=== PATIENT | female | born 1980 | race African-American/Black ===

== ENCOUNTER 2021-08-08 10:54 | Emergency (ER) | payer OTHER, SELFPAY ==
--- NOTE | ~2021-08-08 | XR_ITS ---
EXAMINATION: XR foot LT 2V DATE: 08/08/2021 11:44 INDICATION: Knot at the anterolateral side of the left foot TECHNIQUE: Dorsoplantar and lateral views of the left foot were obtained. COMPARISON: None. FINDINGS: Bone alignment is normal. No fracture. Mild osteoarthritis at the first metatarsophalangeal joint. 2. 7 mm very thin curvilinear wire-like metallic foreign body located in the subcutaneous tissues approx imately 2.5 mm deep to the skin surface positioned between the necks of the first and second metatars als. No other radiopaque foreign bodies. Soft tissues are otherwise unremarkable. IMPRESSION: 1. 2.7 mm thin wire-like metallic foreign body in the dorsal superficial subcutaneous tissues between the necks of the first and second metatarsals. Reviewed, dictated and finalized at location A. IMPRESSION: 1. 2.7 mm thin wire-like metallic foreign body in the dorsal superficial subcut aneous tissues between the necks of the first and second metatarsals.
[2021-08-08 11:15] VITALS: BP 141/84; PULSE 65; RESP 16; TEMP 36.6; O2SAT 99
--- NOTE | 2021-08-08 11:33 | ED.LOWEXIN ---
HPI - Extremity Injury (Lower) General Chief Complaint: Extremity Injury, Lower Stated Complaint: foot injury Time Seen by Provider: 08/08/21 11:29 History of Present Illness HPI Narrative: Patient is a healthy 41-year-old female here for evaluation of left foot pain. Patient states that she noted a painless bump on her foot 3 weeks ago. She has been walking on the left foot without trouble. States that she struck her foot on the dresser 3 days ago, and since then the lump has been painful. She took Tylenol yesterday with good relief of her symptoms. Denies numbness or tingling in her foot, weakness, break in skin integrity. Denies known foreign body. Related Data Allergies Allergy/AdvReac Type Severity Reaction Status Date / Time No Known Allergies Allergy Unverified 06/16/17 11:32 Review of Systems Review of Systems: APPEARANCE: No acute distress, nontoxic, resting in bed EYES: EOMI HEENT: Normocephalic, atraumatic, OMM RESPIRATORY: No respiratory distress Clear to auscultation bilaterally with no rhonchi wheezing or rales. CARDIOVASCULAR: 2+ DP and PT pulses bilaterally. Regular rate and rhythm without murmurs rubs or gallops. ABDOMINAL: Soft, nontender, nondistended, no rebound or guarding MUSCULOSKELETAL: Patient has very mild swelling on her left anterior foot overlying her cuneiforms that is tender to palpation. No erythema or break in skin integrity. Moves all extremities. No clubbing, cyanosis or edema. NEURO: Sensation intact over entire foot. Full range of motion in bilateral feet. Awake and alert. Following commands, speech normal, no focal deficits SKIN: Warm, dry. No rashes lesions or abrasions PSYCHIATRIC: Normal affect/mood Course Vital Signs Vital signs: Vital Signs Temperature 97.8 F 08/08/21 11:15 Pulse Rate 65 08/08/21 11:15 Respiratory Rate 16 08/08/21 11:15 Blood Pressure 141/84 H 08/08/21 11:15 Pulse Oximetry 99 08/08/21 11:15 Oxygen Delivery Room Air 08/08/21 11:15 Temperature 97.8 F 08/08/21 12:09 Pulse Rate 72 08/08/21 12:38 Respiratory Rate 18 08/08/21 12:38 Blood Pressure 146/99 H 08/08/21 12:38 Pulse Oximetry 99 08/08/21 12:38 Oxygen Delivery Room Air 08/08/21 11:15 MDM - Extremity Injury (Lower) MDM Narrative Medical decision making narrative: 41-year-old female here for evaluation of pain and swelling to her right anterior foot. Good distal pulses, sensation intact, able to move foot and bear weight without trouble. X-ray does reveal evidence of a small metallic foreign body just under the skin. Patient does not recall a time where this foreign body could have been entered into her skin. She has no break in her skin integrity by time of my exam. The foreign body is over the location of her pain, but the object is small, and she has no signs of cellulitis or deep tissue infection, feel risks of removal in ED outweigh benefits. Will provide patient with podiatry follow-up. Discussed return precautions, she voiced understanding. Discharge Plan Discharge Clinical Impression: Foreign body (FB) in soft tissue Patient Disposition: Home, Self-Care Condition: Stable Instructions: Antibiotic Form Additional Instructions: You are found to have a small metallic foreign body in your foot where you are having pain. Please follow-up with podiatry if the pain continues. Return to the emergency department if you develop severe pain, you cannot walk, your foot becomes swollen or red, you develop fevers. Follow-up/Referrals: Otto Newsome DPM [Physician] - 1 Week PHYSICIAN NOT ON STAFF,NONSTAFF [Primary Care Provider] -
[2021-08-08] MEDS: IBUPROFEN 600 MG TABLET PO (11:39)
[2021-08-08 12:09] VITALS: TEMP 36.6
[2021-08-08 12:38] VITALS: BP 146/99; PULSE 72; RESP 18; O2SAT 99
== END 2021-08-08 12:39 | disposition home or self-care (01) ==
PROVIDERS: Emergency Provider Emergency Medicine
DX: M79.5 Residual foreign body in soft tissue (principal)
CPT/HCPCS: 73620; 99283; A9270

== ENCOUNTER 2024-08-05 09:11 | Emergency (ER) | payer OTHER, SELFPAY ==
--- NOTE | ~2024-08-05 | XR_ITS ---
Left wrist Technique: PA, oblique, lateral, and ulnar deviation views were obtained. Clinical History: Pain Findings: No acute fracture or dislocation is seen. Osseous alignment is anatomic. Joint spaces are p reserved. There are several scattered small to 4 bodies at the mid to distal forearm. There are proba ble surgical clips at the distal forearm/wrist.. Impression: No fracture or dislocation. Foreign bodies as above. Correlate with physical exam. These may be chronic in nature. Reviewed, dictated and finalized at location M. Impression: No fracture or dislocation. Foreign bodies as above. Correlate with physical exam. These may be chronic in nature.
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
--- NOTE | ~2024-08-05 | XR_ITS ---
Left Hand Technique: PA, oblique, and lateral views were obtained. Clinical History: Pain Findings: No acute fracture or dislocation is seen. Osseous alignment is anatomic. Joint spaces are p reserved. Soft tissues are unremarkable. Impression: Unremarkable left hand. Reviewed, dictated and finalized at location M. Impression: Unremarkable left hand.
--- NOTE | ~2024-08-05 | XR_ITS ---
Left Shoulder Technique: AP and axillary views were obtained. Clinical History: Pain Findings: No fracture or dislocation is seen. Osseous alignment is anatomic. The glenohumeral and acr omioclavicular joint spaces are preserved. Soft tissues are unremarkable. Impression: Unremarkable left shoulder radiographs. Reviewed, dictated and finalized at [facility]. Impression: Unremarkable left shoulder radiographs.
--- NOTE | ~2024-08-05 | CT_ITS ---
Noncontrast CT scan of the cervical spine Technique: Multiple contiguous axial [address] images of the cervical spine were obtained and rec onstructed in 2D sagittal and coronal planes on the acquisition scanner. Dose reduction technique was used on this scan by utilizing automated exposure control, adjustment of the mA and/or kV according to patient size. The dose-length product (DLP) was 407.65 mGy-cm. Clinical History: Pain Findings: No fractures or dislocations. There is mild reversal of the normal cervical lordosis. Osse ous structures otherwise unremarkable. The intervertebral disc spaces are preserved. No prevertebral soft tissue swelling. Impression: No fracture or subluxation of the cervical spine. Mild reversal of the normal cervical lordosis. Reviewed, dictated and finalized at location . Impression: No fracture or subluxation of the cervical spine. Mild reversal of the normal cervical lordosis.
[2024-08-05 09:17] VITALS: BP 146/90; PULSE 84; RESP 16; TEMP 36.4; O2SAT 100
--- NOTE | 2024-08-05 09:49 | PC.NURSE ---
Patient in imaging at this time
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
--- OUTSIDE RECORDS SUMMARY | 2024-08-05 09:52 | XMS_ITS | Referral Summary ---
Author Organization [facility] al Address [address] [place] [address] Care Team Providers Care Speech Language Pathologist Name Role Phone Yony Wilson MD Primary [...] (05/27/2018): Added automatically from request for surgery [id number] Immunizations Immunization Administration Dates Next Due Tdap 01/21/2018 Social History Tobacco Use Types Packs/Day Years [...] on file Legal Sex Female 9:04 AM CIGARETTE FILTER INSPECTOR Gender Identity Not on file Sexual Orientation Not on file Last Filed Vital Signs Vital Sign Reading Time Taken Comments Blood Pressure 126/77 05/03/2022 6:00 AM CIGARETTE FILTER INSPECTOR Pulse 68 05/03/2022 6:00 AM CIGARETTE FILTER INSPECTOR Temperature 36.7 C (98 F) 05/03/2022 2:12 AM CIGARETTE FILTER INSPECTOR Respiratory Rate 22 05/03/2022 6:00 AM CIGARETTE FILTER INSPECTOR Oxygen Saturation 95% 05/03/2022 6:00 AM CIGARETTE FILTER INSPECTOR Inhaled Oxygen Concentration - - Weight 127 kg (280 lb) 05/03/2022 2:12 AM CIGARETTE FILTER INSPECTOR Height 185.4 cm (6' 1) 05/03/2022 2:08 AM CIGARETTE FILTER INSPECTOR Body Mass Index 36.94 05/03/2022 2:08 AM CIGARETTE FILTER INSPECTOR Plan of Treatment Not on file Insurance [facility] MEDICAID [facility] MEDICAID [facility] PLAN OF RI [facility] Care Teams Speech Language Pathologist Relationship Specialty Start Date End Date Yony Wilson MD [address] [place] [address] PCP - General Gastroenterology 03/13/22
--- OUTSIDE RECORDS SUMMARY | 2024-08-05 09:52 | XMS_ITS | CONTINUITY OF CARE DOCUMENT ---
Author Name heath joe Address Unknown Organization [facility] Office Address [address] [place] [address] [address] [place] [address] Phone [phone] Care Team Providers Care Shop Clerk Name Role Phone Bailey YOST, Nico Unavailable [phone] Nico Avalos MD Unavailable INSURANCE PROVIDERS Payer name Policy type / Coverage type Silvestre red libertarian [place] MEDICAID (2) Medicaid [id number]
--- OUTSIDE RECORDS SUMMARY | 2024-08-05 09:52 | XMS_ITS | Data Portability ---
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 Blood Transfusion N MRSA N Emphysema N Depression N COPD N Blood Clots N Pneumonia N Premature N Peripheral Arterial Disease N Edema N TIA N Headaches/Migraines N Anxiety Disorder N Obesity N Polyps N Infertility N Acid Reflux (GERD) N Hematuria N Stroke N Neck Injury N Polio N Hospital Admission other than N Neurologic Disorder N Other Sleep Disorders N Rheumatoid Arthritis N Fibromyalgia N Abdominal Aortic Aneurysm Repair N Kidney Disease N Heart Conditions N Heart Disease/Heart Problems N Hospitalizations N Brain Tumors N Acne N Skin Problems N Eating Disorder N Meningitis N Constipation N Tuberculosis N Cerebral Palsy N Myocardial Infarction N Asthma N Substance Abuse N Peripheral Vascular Disease N Vertigo N Sleep Disorder N Cirrhosis N Pulmonary Embolism N Chicken Pox N Hematologic Disease N Flomax Use Past or Present N Anxiety/Depression N Thyroid Disease N Colon Cancer N Lung Disease N Glaucoma N Developmental or Behavioral Disorders N Bipolar N Pacemaker N Diverticulitis/Diverticulosis N Orthopedic Problems N Anesthesia Complications N Orthotics N Head Injury/Concussion N Congenital Anomalies N Vicente Bite N Chronic Kidney Disease N Endometriosis N Liver Disease N Schizophrenia N Dialysis N Speech Delay N Chronic Obstructive Pulmonary Disease N Parkinson's Disease N Thyroid Problems N GI Problems N Developmental Delay N Anemia N Multiple Sclerosis N Immune System Disorder N Colon Polyps N Heart Attack (ID) N Diabetes N Cardiomyopathy N Blood Transfusions N Heart Problems/Murmur N Eye Trauma N Congestive Heart Failure (CHF) N Valvular Heart Disease N Hyperlipidemia N Double Vision N Abuse/Domestic Violence N Hepatitis B N Lupus N Epilepsy/Seizures N Reflux/GERD N Aneurysm N Heart Disease N Bronchitis N Pre-Eclampsia N Hypertension N Heart Failure N Other N Gout N High Blood Pressure N Atrial Fibrillation N Kidney Stones N Head Trauma/Injury N Congenital Heart Disease N Spine Problems N Gastrointestinal Disease N Lung Mass N Sinusitis N Obstructive Sleep Apnea N Muscle, Joint, or Bone Problems N Autoimmune disease N Vision or Eye Problems N Arthritis N Blood Clot N Cancer N Seasonal allergies N Leg or Foot Ulcers N Raynaud's Disease N Aortic Aneurysm N Arrhythmia N Headaches N Heart Problems N Ambloypia N Ear or Hearing Problems N Hyperparathyroidism N Migraines N Artificial Joints N Kidney or Bladder Problems N NSAID Use N Encephalitis N PTSD N Ulcers N Prostate Hypertrophy N Bleeding Disorder N AIDS/HIV N Urinary Tract Infection N Back Problems N Allergies N Atrial Flutter N GERD/Reflux N Hepatitis N Autism Spectrum Disorder (ASD) N Breast Cancer N Hernia N Hypothyroidism N Breast Problem N Genitourinary Disease N Deep Vein Thrombosis N Varicose Veins N Cystic Fibrosis N Hearing Loss N Developmental Problems N Carotid Disease N Vitamin D Deficiency N ADHD N Bladder or Kidney Problems N High Cholesterol N [place] N Valvular Abnormalities N Psychiatric/Mental Health Condition N Organ Transplant N Foot Deformity N Allergies/Hayfever N Dyslipidemia N Hyponatremia N Diabetic Eye Disease N Osteoporosis/Osteopenia N Back Pain N Proteinuria N Mental Illness N Neurological Problems N Ovarian Cancer N Bedwetting N Seizures/Epilepsy N Kidney Failure N Ocular trauma N Diverticulitis N Dementia N Sleep Apnea N Mental Problems N Warfarin Management N Osteoporosis N Gynecological History Statement/Question Response Flow Moderate Date of LMP 12/11/2023 STIs/STDs N HPV Vaccine N Duration of Flow (days) 5 Age at Menarche 14 Current Control Method None Age at First Child 21 Frequency of Cycle (Q days) 30 Sexually Active? Y Menses Monthly Y Date of Last Pap Smear 07/16/2018 Sexual Problems? N LMP Approximate Desired Control Method None Obstetrics History GPAL:G 6 P 4 0 3 4 Type Value Multiple Births 1 Full Term 4 Induced 0 Spontaneous 3 Premature 0 Living 4 Ectopics 0 Total 6 Immunizations Vaccine Type Date Status Note Provider Nam e and Address Organization Details Recorded Time OPV 3 completed Not Available [facility] 07/29/2024 15:21:52 DTP 3 completed Not Available [facility] 07/29/2024 15:21:52 DTP 3 completed Not Available [facility] 07/29/2024 15:21:52 OPV 3 completed Not Available [facility] 07/29/2024 15:21:52 DTP 3 completed Not Available [facility] 07/29/2024 15:21:52 OPV 3 completed Not Available [facility] 07/29/2024 15:21:52 rubella 3 completed Not Available [facility] 07/29/2024 15:21:52 measles 4 completed Not Available [facility] 07/29/2024 15:21:52 DTP 5 completed Not Available [facility] 07/29/2024 15:21:52 OPV 5 completed Not Available [facility] 07/29/2024 15:21:52 DTP 8 completed Not Available [facility] 07/29/2024 15:21:52 OPV 8 completed Not Available [facility] 07/29/2024 15:21:52 MMR 3 completed Not Available [facility] 07/29/2024 15:21:52 Td (adult), 2 Lf tetanus toxoid, preservative free, adsorbed 0 completed Not Available [facility] 07/29/2024 15:21:52 Tdap 8 completed Not Available [facility] 07/29/2024 15:21:52 HPV9 0 completed Ashanti Simpson [place] null, [place] [facility] 05/07/2019 14:14:49 HPV9 0 completed Melissa Parker [place], [place] [facility] 07/30/2019 17:05:21 HPV9 0 completed Tisha Leyva [place], [place] [facility] 11/13/2019 11:47:51 Past Encounters Encounter ID Performer Location Encounter Start Date Encounter Closed Date Diagnosis/Indication Diagnosis SNOMED-CT Code Diagnosis ICD10 Code Diagnosis Note [id number] MD Genaro Mack (JITNEY DRIVER) [address] [place] [address] [phone] 0 08/02/2014 11:30:27 08/02/2014 13:40:10 Pain in pelvis [id number] MD Genaro Wright (JITNEY DRIVER) [address] [place] [address] 82371-606 0 07/01/2015 14:09:13 07/08/2015 17:01:10 Gynecologic examination 47487387 Z01.547 [id number] MD Genaro Franz (Adult Med) [address] [place] [address] 93244-576 0 06/25/2018 14:44:47 06/26/2018 10:22:26 Neuropathy 014616544 G62.9 Obesity 687316191 E66.9 [id number] MD Genaro Mcdaniel (JITNEY DRIVER) [address] [place] [address] [id number] 0 07/16/2018 14:23:53 07/18/2018 09:43:06 Exposure to sexually transmissible disorder 825894702 Z20.2 Obesity 253809332 E66.9 Gynecologi c examination 95044858 Z01.419 Neuropathy 516187318 G62 .9 [id number] MD Genaro Franz (Adult Med) [address] [place] [address] [id number] 0 08/13/2018 15:44:59 08/14/2018 09:50:48 Neuropathy 963584698 G62.9 Elevated blood-pressure reading without diagnosis of hypertension 584199480 R03.0 Start HCTZ Postoperative pain 84739 9007 G89.18 Medication monitoring 39 7848100 Z51.81 [id number] MD Genaro Franz (Adult Med) [address] [place] [address] [id number] 0 11/12/2018 11:58:13 11/13/2018 09:59:39 Postoperative pain 251966550 G89.18 Neuropathy 689049012 G62 .9 Obesity 543171931 E66.9 Medication monitoring 39 5740884 Z51.81 [id number] MD Genaro Mcdaniel (JITNEY DRIVER) [address] [place] [address] 76018-273 0 05/07/2019 12:09:31 05/07/2019 14:13:46 Family planning surveillance 826782344 Z30.09 Urinary incontinence 165 756032 R32 Urge and Stress incontinen ce. Instructed to continue Kegel exercises and to ensure she is consistent with them. Dysfunctio n of urinary bladder 83105374 R39.89 Active or passive immunization 580119884 Z23 [id number] MD Genaro Franz (Adult Med) [address] [place] [address] [id number] 0 05/13/2019 12:00:22 05/27/2019 09:23:40 Postoperative pain 280550937 G89.18 Neuropathy 256715444 G62 .9 Discussed taking gabapentin as prescribed and not just at HS Medication monitoring 39 0579096 Z51.81 [id number] MD Genaro Mcdaniel (JITNEY DRIVER) [address] [place] [address] 10561-340 0 07/30/2019 16:13:48 07/31/2019 07:44:39 Active or passive immunization 299750237 Z23 [id number] MD Genaro Martinez (Adult Med) [address] [place] [address] 37634-921 0 11/10/2019 07:50:32 11/10/2019 20:16:23 Postoperative pain 126846330 G89.18 [id number] MD Genaro Mcdaniel (JITNEY DRIVER) [address] [place] [address] 38904-702 0 11/13/2019 11:31:19 11/16/2019 12:04:20 Active or passive immunization 271866240 Z23 [id number] MD Genaro Franz (Adult Med) [address] [place] [address] [id number] 0 02/02/2020 08:34:39 02/03/2020 14:39:53 Postoperative pain 147129001 G89.18 Neuropathy 160618718 G62 .9 Discussed taking gabapentin as prescribed and not just at HS [id number] MD Genaro Franz (Adult Med) [address] [place] [address] [id number] 0 08/09/2020 12:25:24 08/10/2020 06:54:33 Neuropathy 096740960 G62.9 gabapentin makes her sleepy . Will try pregabalin . Will refer back to surgery. Pt to call re specialty she used for surgery. Obesity 003987525 E66.9 Bite of insect 865140629 W57.XXXA Prednisone taper [id number] MD Genaro Franz (Adult Med) [address] [place] [address] 53546-619 0 10/24/2021 10:03:26 10/25/2021 08:11:43 Mass of subcutaneous tissue of left foot 8110450442 3141367 R22.42 F/U with podiatry Pre-surger y evaluation 875954651 Z01.818 Disorder of left ear 791 7553368 315479 H93.92 [id number] Abiel Tolliver MD [facility] [address] [place] [address] 11/03/2021 09:50:55 11/06/2021 12:14:58 Mass of subcutaneous tissue of left foot 5934571148 4852266 R22.42 Temporoman dibular joint disorder 97494021 M26.609 soft diet over-the-c ounter anti-infla mmatories follow-up if it is not improving [id number] MD Genaro Franz (Adult Med) [address] [place] [address] 10077-212 0 10/31/2022 10:25:26 11/06/2022 11:14:16 Hidradenitis 48188653 L73.2 Neuropathy 631547025 G62 .9 gabapentin makes her sleepy . Will try pregabalin . Elevated blood-pressure reading without diagnosis of hypertension 584614550 R03.0 Recheck in 1 month [id number] [facility] ([facility] [address] [place] [address] 03029-373 0 11/29/2022 12:16:42 11/30/2022 09:19:00 Neuropathy 510449457 G62.9 Continue pregabalin . Pt to get printout and call neurology consult for appointmen t Obesity 065888807 E66.9 Pain in left arm 0315148 00 M79.513 [id number] MD Genaro Infante (Adult Med) [address] [place] [address] 35001-821 0 02/08/2023 09:33:51 02/11/2023 14:07:25 Mass of axilla 360522135 R22.2 Tender mass left axilla. Will get mammogram for further evaluation . Trial of antibiotic solution. Follow up after mammogram. [id number] MD Genaro Infante (Adult Med) [address] [place] [address] 09610-456 0 03/19/2023 16:51:21 03/21/2023 14:44:16 Obesity 532408233 E66.9 Mass of axilla 544291282 R22.2 Tender mass left axilla. Did not resolve with oral antibiotic s. Consistent with sebaceous cyst on mammogram and ultrasound . Referral to general surgeon for further evaluation and possible excision. Sebaceous cyst of skin 784093938 L72.3 [id number] MD Genaro Franz (Adult Med) [address] [place] [address] [id number] 0 04/17/2023 10:25:52 04/23/2023 15:06:11 Hidradenitis 85556933 L73.2 Pain of le ft upper arm 2002540034 05169 M79.117 [id number] Gianni Mccoy MD [facility] [address] [place] [address] 04/16/2023 12:26:43 04/16/2023 15:16:56 Sebaceous cyst of skin 105293843 L72.3 patient with soft tissue mass c/w sebaceoma. Amenable to resection. Risks include bleeding, wound infection, and a slight risk of recurrence . Will proceed to the OR as soon as is convenient . Patient in agreement with the plan of care. [id number] Gianni Mccoy MD [facility] [address] [place] [address] 05/21/2023 11:41:20 05/21/2023 12:39:32 Sebaceous cyst of skin 082256466 L72.3 s/p excision Postoperative visit 1832 07293 Z48.89 cleanse incision daily with soap and water, scrub gently. Do not use gels or creams or ointments until skin is fully healed. Return to office should a problem arise [id number] MD Genaro Infante (Adult Med) [address] [place] [address] [id number] 0 07/08/2023 11:09:59 07/09/2023 16:10:59 Obesity 624072231 E66.9 Venereal d isease screening 832836928 Z11.3 Screening for malignant neoplasm of cervix 639661348 Z12.4 Essential hypertension 19032651 I10 Patient's blood pressures have been elevated since March and she is experienci ng occasional headaches. She will resume her blood pressure medication . Will also get blood work done today because she is fasting. Will follow up with her primary care provider. Hyperlipid emia screening 066952896 Z13.220 Urge incon tinence of urine 32594371 N39.41 Having combinatio n of urge and stress incontinen ce but mostly urge incontinen ce. Has tried Kegels. Will rule out UTI and if normal will start her on Oxybutinin . Follow up in two months. Vaginal lesion 549267982 N94.89 Lesion has been present for at least five years and is unchanged. I do not visualize anything concerning . Will continue to observe. Advised her to check it periodical ly and let me know if there is any change. [id number] MD Genaro Infante (Adult Med) [address] [place] [address] 46389-871 0 09/06/2023 10:06:18 09/11/2023 16:30:05 Body mass index 30+ - obesity 105795080 Z68.35 Anemia 849288239 D64.9 Will repeat a CBC to make sure Hgb is not decreasing . Infection by Trichomonas 61668208 A59.9 Was treated for Trichomona s infection. Needs repeat STI for reinfectio n three months from treatment which is in one month. Will follow up in one month for repeat testing. Essential hypertension 22962725 I10 Blood pressure good today and patient is feeling better. Will continue hydroxychl orothiazid e. Hyperlipidemia 52351564 E78.5 Bad cholestero l is slightly elevated but calculated low risk for heart disease. Does not require medication but will work on healthy diet. Repeat in one year. [id number] MD Genaro Infante (Adult Med) [address] [place] [address] 57540-353 0 10/07/2023 10:27:03 10/08/2023 13:10:09 Trichomonal vaginitis 123414680 A59.00 Patient is not symptomati c so she self collected for Nuswab today to test for reexposure to Trichomona s after postive test three months ago. Eczema 55245898 L30.9 Rash nonspecifi c. The hypopigmen tation may be due to skin irritation from scratching . Consider eczema. Recommend steroid cream BID for no more than 14 days. I did tell her that this can decrease skin pigmentati on. Also recommende d Eucerin or Lubriderm BID after using steroid cream. Follow up in three months. Essential hypertension 09853618 I10 Blood pressure good today. Headache 49145457 R51.9 Has been having mild headaches. Will discuss with primary care provider at follow up in two weeks. If headaches become more severe seek immediate medical attention. [id number] MD Genaro Franz (Adult Med) [address] [place] [address] 94812-279 0 11/18/2023 10:09:15 11/19/2023 12:59:46 Pain in left arm 343355888 M79.602 Obesity 661443680 E66.9 Neuropathy 448729836 G62 .9 [id number] MD Genaro Franz (Adult Med) [address] [place] [address] 55249-459 0 12/31/2023 11:26:51 01/02/2024 11:49:06 Pain in left arm 045583542 M79.602 Obesity 352305014 E66.9 [id number] MD Genaro Infante (Adult Med) [address] [place] [address] 57958-784 0 07/29/2024 15:21:08 07/30/2024 15:10:22 Essential hypertension 94467629 I10 Blood pressure good today. Will get yearly blood work and urine. Will continue present medication . Vaginal odor 989428765 N 89.8 Vaginal odor. Has not been sexually active in some time. Will check a Nuswab. Hyperlipid emia screening 243773962 Z13.220 Will return for fasting lipid panel. Screening mammography 24 923239 Z12.31 Body mass index 30+ - obesity 740499022 Z68.34 Went to weight loss clinic and was started on Ozempic. Has no personal or family history of pancreatit is or thyroid cancer. Encouraged her to make sure to work on lifestyle changes. [id number] MD Genaro Franz (Adult Med) [address] [place] [address] 05280-588 0 03/04/2024 16:25:03 03/05/2024 16:42:46 Neck pain 39960242 M54.2 Health Concerns Section Related Observation LastModified by Organization Detai ls LastModified Time None Recorded Concern Status LastModified by Organization Details LastModified Time None Recorded Advance Directives Directive N: Payers Encounter Date Sequence Insurance Name Policy Number Policy Carmona Covered Member ID Carmona Member ID Guarantor Name 10/07/2023 1 [facility] ON OR AFTER 08/25/20 (MEDICAID REPLACEMENT - HMO) Az Barahona [id number] Az Barahona 11/18/2023 1 [facility] ON OR AFTER 20 (MEDICAID REPLACEMENT - HMO) Az Barahona [id number] Az Barahona 12/31/2023 1 [facility] ON OR AFTER 08/25/20 (MEDICAID REPLACEMENT - HMO) Az Barahona [id number] Az Barahona 03/04/2024 1 [facility] ON OR AFTER 08/25/20 (MEDICAID REPLACEMENT - HMO) Az Barahona [id number] Az Barahona 07/29/2024 1 [facility] ON OR AFTER 08/25/20 (MEDICAID REPLACEMENT - HMO) Az Barahona [id number] Ashleyraven Menonler Notes Date Note Type Note Provider Name and Address Organization Details Recorded Time 10/07/2023 text/html follow up women[facility], needs to retest following positive Trichomonas, has been three months since tested positive, no vaginal discharge, has a rash on right upper thigh that itches, has been there a week, no known cause, has very sensitive skin, uses Nina Butter, dog occasionally scratches skin, has been having slight headaches, has an appointment with Dr. Godoy in a couple of weeks Bella Saenz MD Attn: Accounting, [address] [place], [address], [facility] 10/07/2023 12:01:45 11/18/2023 text/html Needs refills on BP meds. She continues to have pain in her left arm. She was unable to tolerate pregabalin and gabapentin. Has not had a response from neurology. Yony Godoy MD Attn: Accounting, [address] [place], [address], [facility] 11/18/2023 10:49:46 12/31/2023 text/html Here for f/u of left forearm pain. No benefit from amitriptyline. she has little feeling in her little finger and the arm is weak at times. Acetaminophen and ibuprofen provide some relief Yony Godoy MD Attn: Accounting, [address] [place], [address], [facility] 12/31/2023 12:00:09 03/04/2024 text/html Pain in right si de of neck for the past four days. No trouble swallowing, sore throat. Neck feels funny: when she turns to the left Yony Godoy MD Attn: Accounting[address] [facility], [place], [address], [facility] 03/04/2024 18:28:00 07/29/2024 text/html here for follow up, no chest pain, no shortness of breath, no headache, has had vaginal symptoms for a week, slight itching, no discharge, odor, no sex 2022, last Saturday started Ozempic at weight loss clinic, four boys, last two who are twins just graduated, one is working at [employer] and one is going to [employer], older son is in [employer] Bella Saenz MD Attn: Accounting[address] [facility], [place], [address], [facility] 07/29/2024 16:04:54 OBGyn Episode No OBEpisode recorded.
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
[2024-08-05] MEDS: ACETAMINOPHEN 500 MG TABLET 1000 MG PO (10:08)
[2024-08-05] MEDS: KETOROLAC (*BKC) 60 MG/2 ML VIAL IM (10:09)
--- OUTSIDE RECORDS SUMMARY | 2024-08-05 11:44 | XMS_ITS | Clinical Summary ---
Author Organization [facility] al Address [address] [place] [address] Care Team Providers Care Shock Absorber Installer Name Role Phone Yony Wilson MD Primary [...] (05/27/2018): Added automatically from request for surgery [id number] Immunizations Immunization Administration Dates Next Due Tdap [...] on file Legal Sex Female 9:04 AM ANALYST PROGRAMMER Gender Identity Not on file Sexual Orientation Not on file Obstetrics History Last Filed Vital Signs Vital Sign Reading Time Taken Comments Blood Pressure 126/77 05/03/2022 6:00 AM ANALYST PROGRAMMER Pulse 68 05/03/2022 6:00 AM ANALYST PROGRAMMER Temperature 36.7 C (98 F) 05/03/2022 2:12 AM ANALYST PROGRAMMER Respiratory Rate 22 05/03/2022 6:00 AM ANALYST PROGRAMMER Oxygen Saturation 95% 05/03/2022 6:00 AM ANALYST PROGRAMMER Inhaled Oxygen Concentration - - Weight 127 kg (280 lb) 05/03/2022 2:12 AM ANALYST PROGRAMMER Height 185.4 cm (6' 1) 05/03/2022 2:08 AM ANALYST PROGRAMMER Body Mass Index 36.94 05/03/2022 2:08 AM ANALYST PROGRAMMER Plan of Treatment Health Maintenance Due Date [...] age to complete this topic Insurance [facility] MEDICAID [facility] [place] [place] [address] MEDICAID [facility] Care Teams Shock Absorber Installer Relationship Specialty Start Date End Date Yony Wilson MD [address] [place] [id number] PCP - General Gastroenterology 03/13/22
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
--- OUTSIDE RECORDS SUMMARY | 2024-08-05 11:44 | XMS_ITS | Clinical Summary ---
Author Organization [facility] Address [address] [place] [address] Phone Care Team Providers Care Detasseling Crew Supervisor Name Role Phone Yony Wilson MD Primary Care Provider Mahamed Díaz MD Unavailable [phone] Allergies No known active allergies Medications hydroCHLOROthia [...] Description 05/08/2024 9:00 AM CDT Office Visit [facility] [address] [place] [address] Mahamed Díaz MD Nerve pain [...] [facility] [place] [address] [place] [address] Cathryn Lacey, EXCEPTIONAL CHILDREN TEACHER ASSISTANT, DELIVERY ARCHITECT [address] [place] [address] Health Maintenance Due Date Last Done Comments [...] age to complete this topic Insurance MEDICAID [facility] Care Teams Detasseling Crew Supervisor Relationship Specialty Start Date End Date Yony Wilson MD [facility] [place] [address] PCP - General Internal Medicine 12/11/23 Mahamed Díaz MD [address] [place] [address] Consulting Physician Neurology 05/07/24
--- OUTSIDE RECORDS SUMMARY | 2024-08-05 11:44 | XMS_ITS | CONTINUITY OF CARE DOCUMENT ---
Author Name heath joe Address Unknown Organization [facility] Office Address [address] [place] [address] [address] [place] [address] Phone [phone] Care Team Providers Care Diamond Blender Name Role Phone Bailey YOST, Nico Unavailable [phone] Nico Avalos MD Unavailable [phone] INSURANCE PROVIDERS Payer name Policy type / Coverage type Silvestre red republican ID [employer] MED[place] (2) Medicaid [id number]
--- OUTSIDE RECORDS SUMMARY | 2024-08-05 11:44 | XMS_ITS | Referral Summary ---
Author Organization [facility] al Address [address] [place] [address] Care Team Providers Care Brazer Controlled Atmospheric Furnace Name Role Phone Yony Wilson MD Primary [...] (05/27/2018): Added automatically from request for surgery [id number] Immunizations Immunization Administration Dates Next Due Tdap [...] on file Legal Sex Female 9:04 AM FINANCE PROFESSOR Gender Identity Not on file Sexual Orientation Not on file Last Filed Vital Signs Vital Sign Reading Time Taken Comments Blood Pressure 126/77 05/03/2022 6:00 AM FINANCE PROFESSOR Pulse 68 05/03/2022 6:00 AM FINANCE PROFESSOR Temperature 36.7 C (98 F) 05/03/2022 2:12 AM FINANCE PROFESSOR Respiratory Rate 22 05/03/2022 6:00 AM FINANCE PROFESSOR Oxygen Saturation 95% 05/03/2022 6:00 AM FINANCE PROFESSOR Inhaled Oxygen Concentration - - Weight 127 kg (280 lb) 05/03/2022 2:12 AM FINANCE PROFESSOR Height 185.4 cm (6' 1) 05/03/2022 2:08 AM FINANCE PROFESSOR Body Mass Index 36.94 05/03/2022 2:08 AM FINANCE PROFESSOR Plan of Treatment Not on file Insurance [facility] MEDICAID [facility] MEDICAID [facility] [place] [facility] Care Teams Brazer Controlled Atmospheric Furnace Relationship Specialty Start Date End Date Yony Wilson MD [address] [place] [address] PCP - General Gastroenterology 03/13/22
== END 2024-08-05 10:29 | disposition home or self-care (01) ==
PROVIDERS: Emergency Provider Physician Assistant; PCP Internal Medicine Gastroenterology
DX: S16.1XXA Strain of muscle, fascia and tendon at neck level, initial encounter (principal); S46.912A Strain of unspecified muscle, fascia and tendon at shoulder and upper arm level, left arm, initial encounter; V49.40XA Driver injured in collision with unspecified motor vehicles in traffic accident, initial encounter
CPT/HCPCS: 70450; 72125; 73030; 73110; 73130; 96372; 99284; A9270; J1885